=== PATIENT | female | born 1960 | race Caucasian/White ===

== ENCOUNTER → 2018-02-11 | Outpatient (CLI) | payer OTHER ==
[~2018-02-11] MED LIST: ALBU8.5H IH; ASPI81TA21 PO; BCP; CALC-854 PO; ETHI1TAB26 PO; FOLI-48 PO; HYDR-4309 PO; IBUP-2704 PO; LANS15CA38 PO; NAPR-1043 PO; OMEP-218 PO; OMEP40CA48 PO; OSPE60TA2 PO; OXYC-865 PO; PANT40TA65 PO; PEG4000S21 PO; PER PO; RANI-320 PO; RANI-366 PO; RANI300C8 PO
--- NOTE | 2018-02-11 15:39 | RADIOLOGY IMAGING REPORT ---
FACILITY: [facility] PATIENT NAME: Graciela Johnston : 1960 MR: [id number] V: [id number] EXAM DATE: ORDERING PHYSICIAN: LOUISE AARON TECHNOLOGIST[place] [facility] [place]aciela [place] : 1960 Visit/Account:[id number] Date of Sevice: 02/11/2018 EXAMINATION: CT of the Paranasal Sinuses HISTORY: Pressure over the bridge of the nose. TECHNIQUE: Contiguous axial images were obtained through the paranasal sinuses without intravenous c ontrast administration. Coronal and sagittal reformatted images were obtained from the axial source d max. One of the following dose optimization techniques was utilized in the performance of this exam: Autom ated exposure control; adjustment of the mA and/or kV according to the patient's size; or use of an i terative reconstruction technique. Specific details can be referenced in the facility's radiology C T exam operational policy. COMPARISON: Head CT dated 12/11/2015. FINDINGS: Maxillary sinuses: Mild mucosal thickening along the floor of the left maxillary sinus. Otherwise ne gative. Frontal sinuses: Mild nonocclusive mucosal thickening in the left frontal drainage pathway. Ethmoid air cells: Negative. Sphenoid sinuses: Negative. Ostiomeatal units: Patent. Nasal septum / nasal cavity: Rightward nasal septal deviation. Orbits: Negative. Visualized intracranial contents/soft tissues: Negative. TMJs: Negative. IMPRESSION: 1. Mild mucosal thickening in the left maxillary sinus and left frontal sinus drainage pathway. Par anasal sinuses are otherwise clear. 2. Rightward nasal septal deviation. Report Dictated By: Eliot David MD at 02/11/2018 3:31 PM Report E-Signed By: Eliot David MD at 02/11/2018 3:36 PM WSN:[id number]
== END ==
LOC: CT 14:56
PROVIDERS: ATTEND Physician Assistant
DX: J32.0 Chronic maxillary sinusitis (principal); J34.2 Deviated nasal septum
CPT/HCPCS: 70486

== ENCOUNTER → 2018-02-15 | Outpatient (CLI) | payer OTHER ==
[~2018-02-15] MED LIST changes: +IBUP200C74 PO; +MELA10TA2 PO; +NAPR220C12 PO
--- NOTE | 2018-02-15 11:55 | RADIOLOGY IMAGING REPORT ---
FACILITY: [facility] PATIENT NAME: Graciela Johnston : 1960 MR: [id number] V: [id number] EXAM DATE: ORDERING PHYSICIAN: INGRID CAMILO TECHNOLOGIST: Location: [facility] Patient: Graciela Johnston : 1960 Visit/Account:[id number] Date of Sevice: 02/15/2018 BONE MINERAL DENSITY HISTORY: Osteopenia COMPARISON: None. FINDINGS: LUMBAR SPINE: Bone mineral density (BMD) measured from L1-L4 correlates with a Z-score of -1.5 and a T-score of -2. 5 which is osteoporosis as defined by the World Health Organization. The corresponding risk of fract ure in the lumbar spine is 6X compared with a young adult reference population. This value has decre ased by 2.6% since the prior study. More than 5% change is considered significant. HIP: Bone mineral density (BMD) measured in the left total hip region correlates with a Z-score of -1.3 an d a T-score of -2.0 which is osteopenia as defined by the World Health Organization. The correspondi ng risk of fracture in the hip is 4X compared with a young adult reference population. This value lima s decreased by 7% since the prior study. More than 5% change is considered significant. Bone mineral density (BMD) measured in the left Femoral Neck region measures 0.753 g/cm2. IMPRESSION: 1. Lumbar spine: Osteoporosis. There has been no significant change in the bone mineral density si nce the previous exam. 2. Left Total Hip: Osteopenia. There has been significant decrease in the bone mineral density sin ce the previous exam. 3. Left Femoral Neck: Bone Mineral Density is 0.753 g/cm2. The next DEXA scan of this patient should include the following sites: L1-L4, left hip. FRAX? WHO Fracture Risk Assessment Tool link: <http://www.shef.ac.uk/FRAX/tool.jsp?locationValue=9> PLEASE NOTE: 1) The World Health Organization defines low BMD as follows: T-score Normal > -1 Osteopenia < -1 and > -2.5 Osteoporosis < -2.5 without fractures Established osteoporosis < -2.5 with fractures 2) In general, you may wish to consider: Diagnosis Treatment Follow-up DEXA Normal BMD Prevention 2-3 years Osteopenia Prevention/therapy 1-2 years Osteoporosis Therapy Yearly 3) Fracture risk estimated from the T-score is more accurate for vertebral fractures (often spontane ous) than for hip fractures. Report Dictated By: Sian Hughes DO at 02/15/2018 11:45 AM Report E-Signed By: Sina Hughes DO at 02/15/2018 11:51 AM WSN:[id number]
--- NOTE | 2018-02-16 11:32 | RADIOLOGY IMAGING REPORT ---
FACILITY: [facility] PATIENT NAME: SALOMON DUONG : [id number] MR: [id number] V: [id number] EXAM DATE: [id number] ORDERING PHYSICIAN: INGRID CAMILO TECHNOLOGIST: Jeni Escobar PROCEDURE:BILATERAL DIGITAL SCREENING MAMMOGRAM WITH CAD ASSISTED INTERPRETATION & 3D TOMOSYNTHESIS COMPARISON:Prior mammogram 05/18/14. INDICATIONS:SCREENING FINDINGS: The breast parenchyma is mammographically dense which can obscure small nodules. There are no dominant masses or recent microcalcifications present. DIAGNOSTIC CATEGORY 1--NEGATIVE. RECOMMENDATIONS: ROUTINE MAMMOGRAM AND CLINICAL EVALUATION. IMPRESSION: BIRADS 1: Negative. Routine mammographic screening. Dictated by: Leo Dyer M.D. on 02/15/2018 at 16:50 Transcribed by: LEN on 02/16/2018 at 9:13 Approved by: Leo Dyer M.D. on 02/16/2018 at 11:31 [facility]
== END ==
LOC: MAMO 01:57
PROVIDERS: ATTEND Obstetrics & Gynecology
DX: Z12.31 Encounter for screening mammogram for malignant neoplasm of breast (principal); M85.88 Other specified disorders of bone density and structure, other site; M81.0 Age-related osteoporosis without current pathological fracture
CPT/HCPCS: 77063; 77067; 77080

== ENCOUNTER → 2019-02-21 | Outpatient (CLI) | payer OTHER ==
[~2019-02-21] MED LIST changes: +FAMO40TA66 PO; -HYDR-4309 PO; +HYDR-653 PO; -RANI-366 PO; +RANI-54 PO
--- NOTE | 2019-02-21 15:11 | RADIOLOGY IMAGING REPORT ---
FACILITY: [facility] PATIENT NAME: SALOMON DUONG : [id number] MR: [id number] V: [id number] EXAM DATE: [id number] ORDERING PHYSICIAN: INGRID CAMILO TECHNOLOGIST: Jeni Escobar PROCEDURE: BILATERAL DIGITAL SCREENING MAMMOGRAM WITH CAD ASSISTED INTERPRETATION & 3D TOMOSYNTHESIS. REASON FOR STUDY: Screening. COMPARISON: 02/15/2018 & 05/18/2014. VIEWS OBTAINED: 2D & 3D full field CC & MLO projections. BREAST DENSITY: Scattered fibroglandular densities. MAMMOGRAM FINDINGS: There is no dominant mass, suspicious cluster of microcalcifications or persistent areas of architectural distortion. IMPRESSION: BIRADS 1: Negative. DIAGNOSTIC CATEGORY 1--NEGATIVE. RECOMMENDATIONS: ROUTINE MAMMOGRAM AND CLINICAL EVALUATION. Dictated by: Ronak De Jesus M.D. on 02/21/2019 at 14:32 Transcribed by: LEN on 02/21/2019 at 14:49 Approved by: Ronak De Jesus M.D. on 02/21/2019 at 15:07 [facility]
--- NOTE | 2019-02-21 15:15 | RADIOLOGY IMAGING REPORT ---
FACILITY: [facility] PATIENT NAME: Graciela Johnston : 1960 MR: [id number] V: [id number] EXAM DATE: ORDERING PHYSICIAN: INGRID CAMILO TECHNOLOGIST: Location: [facility] Patient: Graciela Johnston : 1960 Visit/Account:[id number] Date of Sevice: 02/21/2019 DEXA Scan Clinical history: Screening. Comparison: 719. LUMBAR SPINE: The bone mineral density (BMD) measured from L1-L4 correlates with a Z-score of -1.0 and a T-score of -2.0 which is osteopenic as defined by the World Health Organization. The cor responding risk of fracture in the lumbar spine is moderately increased compared with a young adult r eference population. This value has increased by 6.8 % since the prior study. More than 5% change i s considered significant. HIP: Bone mineral density (BMD) measured in the Left Total Hip region correlates with a Z-score of -1.0 an d a T-score of -1.8. The T-score of the femoral neck is -1.7. The lower of the two T-scores is osteopenic as defined by the World Health Organization. The corresponding risk of fracture in the hip is moderately increased compared with a young adult r eference population. This value has increased by 3.3 % since the prior study. More than 5% change i s considered significant. Bone mineral density (BMD) measured in the Left Femoral Neck region measures 0.805 g/cm?. IMPRESSION: 1. Lumbar spine: Osteopenic. There has been significant increase in the bone mineral density since the previous exam. 2. Left Total Hip: Osteopenic. There has been no significant change in the bone mineral density sin ce the previous exam. The next DEXA scan of this patient should include the following sites: L1-L4 and Left hip. FRAX? WHO Fracture Risk Assessment Tool link: <http://www.shef.ac.uk/FRAX/tool.jsp?locationValue=9> PLEASE NOTE: 1) The World Health Organization defines low BMD as follows: T-score Normal > -1 Osteopenia < -1 and > -2.5 Osteoporosis < -2.5 without fractures Established osteoporosis < -2.5 with fractures 2) In general, you may wish to consider: Diagnosis Treatment Follow-up DEXA Normal BMD Prevention 2-3 years Osteopenia Prevention/therapy 1-2 years Osteoporosis Therapy Yearly 3) Fracture risk estimated from the T-score is more accurate for vertebral fractures (often spontane ous) than for hip fractures. Report Dictated By: Leo Dyer MD at 02/21/2019 3:06 PM Report E-Signed By: Leo Dyre MD at 02/21/2019 3:08 PM WSN:[id number]
== END ==
LOC: MAMO 00:44
PROVIDERS: ATTEND Obstetrics & Gynecology
DX: Z12.31 Encounter for screening mammogram for malignant neoplasm of breast (principal); M85.88 Other specified disorders of bone density and structure, other site
CPT/HCPCS: 77063; 77067; 77080